=== PATIENT | male | born 1975 | race Two or more races ===

== ENCOUNTER 2017-06-15 15:10 | Observation (INO) | payer SELFPAY ==
[~2017-06-15] VITALS: Ht 177.8 cm; Wt 171.1 kg
[~2017-06-15 15:10] MED LIST: ASPIR-LOW81 MG PO; MOTRIN50 MG PO; NITROSTAT0.4 MG SL
[2017-06-15 15:49] LABS: HEMATOCRIT 39.8 % (38.0-50.0); MCHC 35.2 G/DL (30.0-36.0); MCV 85.2 FL (86-99); MEAN PLAT.VOLUME 10.4 uM^3 (9.0-12.4); PLATELET COUNT 172 K/uL (156-360); RBC DIS.WIDTH-CV 12.6 % (11.8-14.6); RBC DIS.WIDTH-SD 38.5 % (39-53); RED BLOOD COUNT 4.67 M/uL (4.00-5.50); WHITE BLOOD COUNT 6.7 K/uL (4.1-10.2)
[2017-06-15 15:59] LABS: CHLORIDE 106 mEq/L (99-109); POTASSIUM 3.6 mEq/L (3.7-5.4); SODIUM 139 mEq/L (136-147)
[2017-06-15 16:00] LABS: GLUCOSE 91 mg/dL (70-99)
[2017-06-15 16:02] LABS: ANION GAP 10 MEQ/L (2-14)
[2017-06-15 16:04] LABS: GFR ESTIMATE (CALCULATED) > 59 mL/min/
[2017-06-15 16:05] LABS: UREA NITROGEN (BUN) 19 mg/dL (9-23)
[2017-06-15 16:15] LABS: TROP-I INTERPRETATION NEGATIVE; TROPONIN-I < 0.01 ng/mL (0.0-0.30)
[2017-06-15 18:27] LABS: TROP-I INTERPRETATION NEGATIVE; TROPONIN-I < 0.01 ng/mL (0.0-0.30)
[2017-06-15] MEDS ORDERED: VITAMIN D33000 UNIT PO (18:50)
[2017-06-15 21:30] VITALS: BP 129/90
[2017-06-15 22:04] LABS: TROP-I INTERPRETATION NEGATIVE; TROPONIN-I < 0.01 ng/mL (0.0-0.30)
[2017-06-15 23:49] VITALS: BP 111/56
[2017-06-16 03:41] VITALS: BP 108/53
[2017-06-16 05:12] LABS: TROP-I INTERPRETATION NEGATIVE; TROPONIN-I < 0.01 ng/mL (0.0-0.30)
[2017-06-16 05:17] LABS: HDL CHOLESTEROL 16 MG/DL (Desirable>=40); LDL CHOLESTEROL 89 mg/dL (Desirable<100); NON-HDL CHOLESTEROL 133 mg/dL (Desirable<160); TOTAL CHOLESTEROL 149 mg/dL (Desirable<200); TRIGLYCERIDES 222 MG/DL (Normal: <150)
[2017-06-16 09:50] VITALS: BP 117/66
[2017-06-16] MEDS ORDERED: ATORVASTATIN CA40 MG PO (12:15)
[2017-06-16] MEDS ORDERED: ASPIR-LOW81 MG PO (12:17)
== END 2017-06-16 13:32 | disposition home or self-care (01) ==
LOC: EME 15:10 → EDOF 19:45 → ENRESERV 19:47 → 5WEST 21:19
PROVIDERS: Physician Assistant Medical
DX: R07.9 Chest pain, unspecified (principal); R55 Syncope and collapse; E66.01 Morbid (severe) obesity due to excess calories; Z68.43 Body mass index [BMI] 50.0-59.9, adult; G47.33 Obstructive sleep apnea (adult) (pediatric); E78.1 Pure hyperglyceridemia; E88.81 Metabolic syndrome and other insulin resistance; Z82.49 Family history of ischemic heart disease and other diseases of the circulatory system; Z87.891 Personal history of nicotine dependence
CPT/HCPCS: 70450; 70498; 71020; 71275; 80048; 80061; 84484; 85027; 93005; 99281; 99285; G0378; J7030